=== PATIENT | female | born 1995 | race Caucasian/White ===

== ENCOUNTER 2021-09-18 14:23 | Emergency (ER) | payer OTHER ==
[~2021-09-18 14:23] MED LIST: COLACE 100MG C100 MG PO; IBUPROFEN600 MG PO; NORCO 5-325 TA1 EACH PO
[2021-09-18] MEDS ORDERED: HYDROCODON-ACE1 EAC4 PO (16:42)
[2021-09-18] MEDS ORDERED: IBUPROFEN600 MG PO (16:43)
== END 2021-09-18 16:57 | disposition home or self-care (01) ==
LOC: ER1 14:23
DX: S62.321A Displaced fracture of shaft of second metacarpal bone, left hand, initial encounter for closed fracture (principal); S62.323A Displaced fracture of shaft of third metacarpal bone, left hand, initial encounter for closed fracture; S62.325A Displaced fracture of shaft of fourth metacarpal bone, left hand, initial encounter for closed fracture; Z88.8 Allergy status to other drugs, medicaments and biological substances; W13.9XXA Fall from, out of or through building, not otherwise specified, initial encounter; Y93.44 Activity, trampolining
CPT/HCPCS: 29515; 73610; 73630; 99283

== ENCOUNTER → 2021-10-04 | Outpatient (CLI) | payer OTHER ==
[~2021-10-04] MED LIST changes: +HYDROCODON-ACE1 EAC4 PO
== END ==
LOC: KOH-I 09:41
DX: S92.322A Displaced fracture of second metatarsal bone, left foot, initial encounter for closed fracture (principal); S92.332A Displaced fracture of third metatarsal bone, left foot, initial encounter for closed fracture; S92.342A Displaced fracture of fourth metatarsal bone, left foot, initial encounter for closed fracture
CPT/HCPCS: 73610; 73630